=== PATIENT | female | born 1975 | race Caucasian/White ===

== ENCOUNTER 2017-09-02 16:37 | Inpatient (IN) ==
[2017-09-02] MEDS ORDERED: SODIUM CHLORIDE 0.9% 1,000 ML IV STA ×2 (18:00→21:01)
[2017-09-02] MEDS ORDERED: ONDANSETRON 4 MG/2 ML VIAL IV STA ×2 (18:00→20:57)
[2017-09-02] MEDS ORDERED: HYDROmorphone 2 MG/1 ML VIAL IV STA ×2 (18:00→20:57)
[2017-09-02] MEDS ORDERED: HYDROmorphone 2 MG/1 ML VIAL ONE ×2 (18:05→20:57)
[2017-09-02] MEDS ORDERED: ONDANSETRON 4 MG/2 ML VIAL ONE ×2 (18:05→20:57)
[2017-09-02 18:21] LABS: Basophils % 0.5 % (0.0-0.8); Eosinophils # 0.1 10*3/uL (0.0-0.87); Eosinophils % 1.9 % (0.00-10.9); Hematocrit 31.1 VOL% (35.7-47.0); Immature Granulocytes % 0.2 %; Immature Granulocytes Absolute 0.01 #; Lymphocytes # 0.3 10*3/uL (1.4-4.0); Mean Corpuscular HGB Conc 37.9 GM/DL (32-36); Mean Corpuscular Hemoglobin 35 PG (27-34); Mean Corpuscular Volume 92.8 FL (87-102); Mean Platelet Volume 9.9 FL (9.6-12.0); Monocytes # 0.8 10*3/uL (0.11-0.8); Neutrophils % 71.4 % (38.7-73.9); Platelet Count 300 T/CUMM (130-400); Red Blood Count 3.35 MC/CUMM (3.8-5.5); Red Cell Distribution Width 16.6 % (9.3-17.3); White Blood Count 4.1 T/CUMM (4-12)
[2017-09-02 18:26] LABS: Hemoglobin 11.8 GM/DL (12.0-16.0)
[2017-09-02 18:27] LABS: Apearance,Urine CLOUDY (Clear); Bacteria,Urine Many /HPF (Few); Bilirubin,Urine Negative (Negative); Blood, Urine Negative (Negative); Glucose,Urine (UA) Negative (Negative); Ketones,Urine Negative (Negative); Mucus,Urine Occasional /LPF (Occasional); Nitrite,Urine Negative (Negative); Protein,Urine Negative; RBC,Urine 1 /HPF (0-4); Squamous Epithelial Cell,Urine Many /HPF (0-10); Urine Color Yellow (Yellow); Urine Specific Gravity 1.013 (1.001-1.035); Urine Urobilinogen < 2.0 EU/DL (0.2-1.0); WBC,Urine 2 /HPF (0-6)
[2017-09-02 18:56] LABS: Albumin 4.4 G/DL (3.4-5.0); Bilirubin,Total 0.8 MG/DL (0.2-1.0); Calcium 9.1 MG/DL (8.5-10.1); Osmolality,Calculated 272.5 MOS/KG (273-304); Potassium 3.7 MMOL/L (3.5-5.1); Total Protein 8.1 G/DL (6.4-8.3)
[2017-09-02] MEDS ORDERED: SODIUM CHLORIDE 0.9% 500 ML IV STA (20:58)
[2017-09-02] MEDS ORDERED: GLUCAGON 1 MG VIAL IM PRN (22:19)
[2017-09-02] MEDS ORDERED: DEXTROSE 50% 25 GM/50 ML VIAL IV PRN (22:19)
[2017-09-02] MEDS: SODIUM CHLORIDE 0.9% 1,000 ML IV SCH (22:55)
[2017-09-02] MEDS: ENOXAPARIN 40 MG/0.4 ML SYRINGE SUBCUT SCH (23:02)
[2017-09-02 23:42] LABS: Band Neutrophils 2 % (0-10); Eosinophils 2 % (0-10); Lymphocytes 7 % (20-55); Metamyelocytes 2 %; Platelet Estimate Normal; Polychromasia Few; Segmented Neutrophils 79 % (50-85); Total Cells Counted 100
[2017-09-03] MEDS: INSULIN REGULAR 100 UNIT/ML SUBCUT SCH ×4 (00:27→18:20)
[2017-09-03] MEDS: HYDROmorphone 2 MG/1 ML VIAL IV PRN ×5 (00:33→19:45)
[2017-09-03 05:01] LABS: Eosinophils % 0.8 % (0.00-10.9); Hematocrit 24.5 VOL% (35.7-47.0); Hemoglobin 8.9 GM/DL (12.0-16.0); Immature Granulocytes % 0.4 %; Immature Granulocytes Absolute 0.01 #; Lymphocytes # 0.3 10*3/uL (1.4-4.0); Lymphocytes % 12.9 % (21.3-54.2); Mean Corpuscular HGB Conc 36.3 GM/DL (32-36); Mean Corpuscular Hemoglobin 35 PG (27-34); Mean Corpuscular Volume 95.3 FL (87-102); Mean Platelet Volume 10.5 FL (9.6-12.0); Monocytes # 0.7 10*3/uL (0.11-0.8); Monocytes % 26.1 % (1.7-12.7); Neutrophils # 1.5 10*3/uL (1.4-7.4); Neutrophils % 59.8 % (38.7-73.9); Platelet Count 204 T/CUMM (130-400); Red Blood Count 2.57 MC/CUMM (3.8-5.5); Red Cell Distribution Width 16.9 % (9.3-17.3); White Blood Count 2.5 T/CUMM (4-12)
[2017-09-03 05:31] LABS: Albumin 3.3 G/DL (3.4-5.0); Bilirubin,Total 1.1 MG/DL (0.2-1.0); Calcium 7.9 MG/DL (8.5-10.1); Potassium 3.4 MMOL/L (3.5-5.1); Total Protein 6.2 G/DL (6.4-8.3)
[2017-09-03 05:33] LABS: Band Neutrophils 18 % (0-10); Eosinophils 2 % (0-10); Lymphocytes 14 % (20-55); Metamyelocytes 3 %; Segmented Neutrophils 37 % (50-85); Total Cells Counted 100
[2017-09-03 05:34] LABS: Hypochromasia 2+; Platelet Estimate Normal
[2017-09-03] MEDS: ONDANSETRON 4 MG/2 ML VIAL IV PRN ×2 (09:49→19:46)
[2017-09-03] MEDS: SODIUM CHLORIDE 0.9% 1,000 ML IV SCH ×2 (09:52→16:32)
[2017-09-03] MEDS ORDERED: POTASSIUM CHLORIDE 20 MEQ TABLET PO ONE (13:12)
[2017-09-03] MEDS ORDERED: ESTRADIOL 0.05 MG INTRADERM SCH (13:15)
[2017-09-03] MEDS: LEVOTHYROXINE 125 MCG TABLET PO SCH (13:46)
[2017-09-03] MEDS: METOPROLOL SUCCINATE XL 25 MG TABLET PO SCH (14:06)
[2017-09-03] MEDS: DICLOFENAC 1% GEL 100 GM TUBE TOP SCH ×2 (16:33→22:00)
[2017-09-03] MEDS: LORazepam 0.5 MG TABLET PO SCH (21:59)
[2017-09-03] MEDS: GABAPENTIN 300 MG CAPSULE PO SCH (21:59)
[2017-09-03] MEDS: ENOXAPARIN 40 MG/0.4 ML SYRINGE SUBCUT SCH (21:59)
[2017-09-03] MEDS: ZALEPLON 5 MG CAPSULE PO SCH (21:59)
[2017-09-03] MEDS: SODIUM CHLOR 0.9% KCL 40 MEQ 40 MEQ/1,000 ML BAG IV SCH (22:52)
[2017-09-04] MEDS: INSULIN REGULAR 100 UNIT/ML SUBCUT SCH ×4 (00:51→18:01)
[2017-09-04 04:15] LABS: ABG HCO3 17.9 MMOL/L (20-26); ABG Oxygen Saturation 96.3 % (95-100); ABG PCO2 32.2 MM HG (35-48); ABG PH 7.332 (7.35-7.45); ABG TCO2 15.9 MMOL/L (23-27); Allen Test Positive; Pt O2 Delivery Device Room Air
[2017-09-04] MEDS: HYDROmorphone 2 MG/1 ML VIAL IV PRN ×2 (04:38→20:23)
[2017-09-04] MEDS: SODIUM CHLOR 0.9% KCL 40 MEQ 40 MEQ/1,000 ML BAG IV SCH ×2 (05:30→10:29)
[2017-09-04 05:48] LABS: Eosinophils # 0.1 10*3/uL (0.0-0.87); Hematocrit 24.9 VOL% (35.7-47.0); Hemoglobin 8.7 GM/DL (12.0-16.0); Immature Granulocytes % 0.8 %; Immature Granulocytes Absolute 0.02 #; Lymphocytes # 0.4 10*3/uL (1.4-4.0); Lymphocytes % 14.7 % (21.3-54.2); Mean Corpuscular HGB Conc 34.9 GM/DL (32-36); Mean Corpuscular Hemoglobin 35 PG (27-34); Mean Corpuscular Volume 99.2 FL (87-102); Mean Platelet Volume 10.3 FL (9.6-12.0); Monocytes # 0.6 10*3/uL (0.11-0.8); Monocytes % 22.4 % (1.7-12.7); Neutrophils # 1.5 10*3/uL (1.4-7.4); Neutrophils % 60.1 % (38.7-73.9); Platelet Count 162 T/CUMM (130-400); Red Blood Count 2.51 MC/CUMM (3.8-5.5); Red Cell Distribution Width 17.5 % (9.3-17.3); White Blood Count 2.5 T/CUMM (4-12)
[2017-09-04 06:25] LABS: Band Neutrophils 2 % (0-10); Eosinophils 1 % (0-10); Lymphocytes 16 % (20-55); Segmented Neutrophils 60 % (50-85); Total Cells Counted 100
[2017-09-04 06:26] LABS: Giant Platelets Few; Hypochromasia 1+; Microcytosis Slight; Platelet Estimate Normal
[2017-09-04] MEDS ORDERED: FUROSEMIDE 20 MG/2 ML VIAL IV PRN (06:33)
[2017-09-04] MEDS ORDERED: SODIUM CHLORIDE 0.9% 1,000 ML IV PRN (06:33)
[2017-09-04 06:37] LABS: Calcium 7.9 MG/DL (8.5-10.1); Free T4 (Free Thyroxine) 1.18 NG/DL (0.76-1.46); Magnesium 1.7 MG/DL (1.8-2.4); Osmolality,Calculated 280.3 MOS/KG (273-304); Potassium 4.4 MMOL/L (3.5-5.1); Thyroid Stimulating Hormone 9.75 uIU/ml (0.358-3.74)
[2017-09-04] MEDS: LEVOTHYROXINE 125 MCG TABLET PO SCH (06:45)
[2017-09-04] MEDS: SERTRALINE 100 MG TABLET PO SCH (08:54)
[2017-09-04] MEDS: METOPROLOL SUCCINATE XL 25 MG TABLET PO SCH (08:54)
[2017-09-04] MEDS: LORazepam 0.5 MG TABLET PO SCH ×2 (08:54→20:23)
[2017-09-04] MEDS: DICLOFENAC 1% GEL 100 GM TUBE TOP SCH ×4 (08:57→20:22)
[2017-09-04] MEDS ORDERED: FUROSEMIDE 40 MG/4 ML VIAL IV ONE (10:23)
[2017-09-04] MEDS ORDERED: MAGNESIUM SULF RIDER 2 GM in PREMIX 1 EACH IV ONE (10:24)
[2017-09-04] MEDS ORDERED: BISACODYL 5 MG TABLET PO ONE (14:31)
[2017-09-04 19:50] LABS: Hematocrit 29.9 VOL% (35.7-47.0)
[2017-09-04 19:55] LABS: Hemoglobin 10.6 GM/DL (12.0-16.0)
[2017-09-04] MEDS: GABAPENTIN 300 MG CAPSULE PO SCH (20:23)
[2017-09-04] MEDS: ZALEPLON 5 MG CAPSULE PO SCH (20:23)
[2017-09-05] MEDS: INSULIN REGULAR 100 UNIT/ML SUBCUT SCH ×3 (00:44→11:15)
[2017-09-05] MEDS: LEVOTHYROXINE 125 MCG TABLET PO SCH (06:08)
[2017-09-05] MEDS ORDERED: BISACODYL 5 MG TABLET PO ONE (06:15)
[2017-09-05 06:22] LABS: Basophils % 0.4 % (0.0-0.8); Eosinophils # 0.1 10*3/uL (0.0-0.87); Eosinophils % 1.9 % (0.00-10.9); Hematocrit 29.2 VOL% (35.7-47.0); Hemoglobin 10.3 GM/DL (12.0-16.0); Immature Granulocytes % 0.8 %; Immature Granulocytes Absolute 0.02 #; Lymphocytes # 0.6 10*3/uL (1.4-4.0); Lymphocytes % 23.5 % (21.3-54.2); Mean Corpuscular HGB Conc 35.3 GM/DL (32-36); Mean Corpuscular Hemoglobin 34 PG (27-34); Mean Corpuscular Volume 96.4 FL (87-102); Mean Platelet Volume 10.1 FL (9.6-12.0); Monocytes # 0.7 10*3/uL (0.11-0.8); Monocytes % 25.4 % (1.7-12.7); Neutrophils # 1.3 10*3/uL (1.4-7.4); Platelet Count 188 T/CUMM (130-400); Red Blood Count 3.03 MC/CUMM (3.8-5.5); Red Cell Distribution Width 16.6 % (9.3-17.3); White Blood Count 2.6 T/CUMM (4-12)
[2017-09-05 06:59] LABS: Band Neutrophils 1 % (0-10); Eosinophils 4 % (0-10); Hypochromasia 1+; Lymphocytes 22 % (20-55); Macrocytosis 1+; Nucleated Red Blood Cells 1 (0-5); Platelet Estimate Adequate; Polychromasia Slight; Segmented Neutrophils 51 % (50-85); Total Cells Counted 100
[2017-09-05] MEDS: METOPROLOL SUCCINATE XL 25 MG TABLET PO SCH (08:54)
[2017-09-05] MEDS: LORazepam 0.5 MG TABLET PO SCH (08:54)
[2017-09-05] MEDS: SERTRALINE 100 MG TABLET PO SCH (08:54)
[2017-09-05] MEDS: DICLOFENAC 1% GEL 100 GM TUBE TOP SCH (08:54)
[2017-09-05 12:02] VITALS: BP 136/84
== END 2017-09-05 12:30 | disposition home or self-care (01) | DRG 439 ==
LOC: N.ED 16:37 → SUATTDRO 21:44 → N.EDINP 21:44 → N.3E 22:14
PROVIDERS: ADMIT Internal Medicine; ATTEND Internal Medicine

== ENCOUNTER 2020-06-13 16:49 | Observation (INO) ==
[2020-06-13] MEDS ORDERED: ALBUTEROL/IPRATROPIUM 3 ML NEB RESP TX STA (20:04)
[2020-06-13] MEDS ORDERED: ONDANSETRON 4 MG/2 ML VIAL IV STA (20:04)
[2020-06-13] MEDS ORDERED: cefTRIAXone 1,000 MG in SODIUM CHLORIDE 0.9% 100 ML IV STA (20:04)
[2020-06-13] MEDS ORDERED: methylPREDNISolone SOD SUC 125 MG/2 ML VIAL IV STA (20:04)
[2020-06-13] MEDS ORDERED: FUROSEMIDE 40 MG/4 ML VIAL IV STA (20:55)
[2020-06-13 21:00] LABS: Basophils % 0.4 % (0.0-0.8); Eosinophils # 0.4 10*3/uL (0.0-0.87); Eosinophils % 4.5 % (0.00-10.9); Hematocrit 41.1 VOL% (35.7-47.0); Hemoglobin 14.4 GM/DL (12.0-16.0); Immature Granulocytes % 0.9 %; Immature Granulocytes Absolute 0.07 #; Lymphocytes # 1.5 10*3/uL (1.4-4.0); Lymphocytes % 18.7 % (21.3-54.2); Mean Corpuscular Volume 94.5 FL (87-102); Mean Platelet Volume 9.8 FL (9.6-12.0); Monocytes % 8.9 % (1.7-12.7); Neutrophils % 66.6 % (38.7-73.9); Platelet Count 208 T/CUMM (130-400); Red Blood Count 4.35 MC/CUMM (3.8-5.5); Red Cell Distribution Width 13.8 % (9.3-17.3); White Blood Count 7.8 T/CUMM (4-12)
[2020-06-13 21:15] LABS: PT Patient Result 10.5 SECS (9.8-11.9)
[2020-06-13 21:22] LABS: Albumin 3.7 G/DL (3.4-5.0); Calcium 9.3 MG/DL (8.5-10.1); Ferritin 63.1 ng/ml (8-252); Osmolality,Calculated 277.7 MOS/KG (273-304); Total Protein 7.2 G/DL (6.4-8.3)
[2020-06-13] MEDS ORDERED: ONDANSETRON 4 MG/2 ML VIAL IV PRN (23:28)
[2020-06-13] MEDS ORDERED: GLUCAGON 1 MG VIAL IM PRN (23:28)
[2020-06-13] MEDS ORDERED: DEXTROSE 50% 25 GM/50 ML VIAL IV PRN (23:28)
[2020-06-13] MEDS ORDERED: ACETAMINOPHEN 325 MG TABLET PO PRN (23:28)
[2020-06-14] MEDS: ALBUTEROL/IPRATROPIUM 3 ML NEB RESP TX SCH ×4 (01:07→19:19)
[2020-06-14 01:33] LABS: Risk Ratio 4.28; VLDL CHOLESTEROL 43.6 MG/DL
[2020-06-14 04:09] LABS: Apearance,Urine CLEAR (Clear); Bacteria,Urine Occasional /HPF (Few); Bilirubin,Urine Negative (Negative); Blood, Urine Negative (Negative); Glucose,Urine (UA) Negative (Negative); Hyaline Casts,Urine 9 /LPF (0-3); Ketones,Urine Negative (Negative); Mucus,Urine Occasional /LPF (Occasional); Nitrite,Urine Negative (Negative); Protein,Urine Negative; RBC,Urine <1 /HPF (0-4); Squamous Epithelial Cell,Urine Occasional /HPF (0-10); Urine Color Straw (Yellow); Urine Specific Gravity 1.006 (1.001-1.035); Urine Urobilinogen < 2.0 EU/DL (0.2-1.0); WBC,Urine 1 /HPF (0-6)
[2020-06-14 06:12] LABS: Albumin 3.6 G/DL (3.4-5.0); Bilirubin,Total 0.7 MG/DL (0.2-1.0); Calcium 9.3 MG/DL (8.5-10.1); Osmolality,Calculated 279.2 MOS/KG (273-304); Total Protein 7.8 G/DL (6.4-8.3)
[2020-06-14] MEDS ORDERED: SODIUM CHLORIDE 0.9% 1,000 ML IV SCH (08:30)
[2020-06-14] MEDS: FUROSEMIDE 40 MG/4 ML VIAL IV SCH (09:55)
[2020-06-14] MEDS: methylPREDNISolone SOD SUC 40 MG/1 ML VIAL IV SCH ×2 (13:18→21:00)
[2020-06-14] MEDS: LORazepam 0.5 MG TABLET PO SCH ×2 (13:18→21:02)
[2020-06-14] MEDS: MULTIVITAMIN (CENTRUM) TABLET PO SCH (13:18)
[2020-06-14] MEDS: METOPROLOL SUCCINATE XL 25 MG TABLET PO SCH (13:18)
[2020-06-14] MEDS: SERTRALINE 100 MG TABLET PO SCH (13:18)
[2020-06-14] MEDS: INSULIN GLARGINE 100 UNIT/ML SUBCUT SCH (13:30)
[2020-06-14] MEDS ORDERED: DEXTROSE 50% 25 GM/50 ML VIAL IV PRN (15:06)
[2020-06-14] MEDS: GABAPENTIN 300 MG CAPSULE PO SCH (21:02)
[2020-06-15] MEDS: ALBUTEROL/IPRATROPIUM 3 ML NEB RESP TX SCH ×4 (01:18→20:34)
[2020-06-15] MEDS: methylPREDNISolone SOD SUC 40 MG/1 ML VIAL IV SCH ×3 (04:05→20:17)
[2020-06-15 05:57] LABS: Basophils % 0.1 % (0.0-0.8); Hematocrit 36.4 VOL% (35.7-47.0); Hemoglobin 12.6 GM/DL (12.0-16.0); Immature Granulocytes % 1.8 %; Immature Granulocytes Absolute 0.13 #; Lymphocytes # 0.5 10*3/uL (1.4-4.0); Lymphocytes % 7.3 % (21.3-54.2); Mean Corpuscular HGB Conc 34.6 GM/DL (32-36); Mean Corpuscular Volume 94.5 FL (87-102); Monocytes % 1.8 % (1.7-12.7); Platelet Count 189 T/CUMM (130-400); Red Blood Count 3.85 MC/CUMM (3.8-5.5); Red Cell Distribution Width 13.7 % (9.3-17.3); White Blood Count 7.2 T/CUMM (4-12)
[2020-06-15 06:14] LABS: Calcium 8.7 MG/DL (8.5-10.1); Osmolality,Calculated 280.1 MOS/KG (273-304)
[2020-06-15] MEDS: LEVOTHYROXINE 200 MCG TABLET PO SCH (06:32)
[2020-06-15] MEDS ORDERED: LEVOTHYROXINE 100 MCG VIAL IV ONE (07:52)
[2020-06-15] MEDS: LORazepam 0.5 MG TABLET PO SCH ×2 (09:37→20:17)
[2020-06-15] MEDS: METOPROLOL SUCCINATE XL 25 MG TABLET PO SCH (09:37)
[2020-06-15] MEDS: MULTIVITAMIN (CENTRUM) TABLET PO SCH (09:38)
[2020-06-15] MEDS: INSULIN GLARGINE 100 UNIT/ML SUBCUT SCH (09:38)
[2020-06-15] MEDS: SERTRALINE 100 MG TABLET PO SCH (09:38)
[2020-06-15] MEDS: FUROSEMIDE 40 MG/4 ML VIAL IV SCH (09:38)
[2020-06-15] MEDS: GABAPENTIN 300 MG CAPSULE PO SCH (20:17)
[2020-06-15] MEDS ORDERED: ZALEPLON 5 MG CAPSULE PO SCH (21:00)
[2020-06-15] MEDS: INSULIN REGULAR 100 UNIT/ML SUBCUT SCH (21:07)
[2020-06-16] MEDS: ALBUTEROL/IPRATROPIUM 3 ML NEB RESP TX SCH ×2 (03:20→07:20)
[2020-06-16] MEDS: methylPREDNISolone SOD SUC 40 MG/1 ML VIAL IV SCH (05:06)
[2020-06-16] MEDS: LEVOTHYROXINE 200 MCG TABLET PO SCH (06:07)
[2020-06-16 06:25] LABS: Basophils % 0.2 % (0.0-0.8); Hematocrit 37.2 VOL% (35.7-47.0); Hemoglobin 13.1 GM/DL (12.0-16.0); Immature Granulocytes % 2.2 %; Immature Granulocytes Absolute 0.19 #; Lymphocytes # 0.6 10*3/uL (1.4-4.0); Lymphocytes % 7.1 % (21.3-54.2); Mean Corpuscular HGB Conc 35.2 GM/DL (32-36); Mean Corpuscular Volume 94.7 FL (87-102); Mean Platelet Volume 10.1 FL (9.6-12.0); Monocytes % 3.8 % (1.7-12.7); Neutrophils % 86.7 % (38.7-73.9); Platelet Count 198 T/CUMM (130-400); Red Blood Count 3.93 MC/CUMM (3.8-5.5); Red Cell Distribution Width 13.5 % (9.3-17.3); White Blood Count 8.6 T/CUMM (4-12)
[2020-06-16 06:41] LABS: Osmolality,Calculated 286.8 MOS/KG (273-304)
[2020-06-16] MEDS ORDERED: FUROSEMIDE 20 MG TABLET PO PRN (09:00)
[2020-06-16] MEDS: INSULIN GLARGINE 100 UNIT/ML SUBCUT SCH (09:45)
[2020-06-16] MEDS: INSULIN REGULAR 100 UNIT/ML SUBCUT SCH ×2 (09:47→11:50)
[2020-06-16] MEDS: MULTIVITAMIN (CENTRUM) TABLET PO SCH (09:49)
[2020-06-16] MEDS: SERTRALINE 100 MG TABLET PO SCH (09:49)
[2020-06-16] MEDS: LORazepam 0.5 MG TABLET PO SCH (09:49)
[2020-06-16] MEDS: METOPROLOL SUCCINATE XL 25 MG TABLET PO SCH (09:50)
[2020-06-16 11:26] VITALS: BP 130/68
== END 2020-06-16 11:49 | disposition home or self-care (01) ==
LOC: N.ED 16:49 → N.EDINP 16:49 → SUATTDRO 23:28 → N.TELES 06-14 00:59
PROVIDERS: ADMIT Internal Medicine; ATTEND Internal Medicine

== ENCOUNTER 2020-11-08 12:49 | Observation (INO) ==
[2020-11-08 13:30] LABS: Basophils % 0.2 % (0.0-0.8); Eosinophils % 0.9 % (0.00-10.9); Hematocrit 34.5 VOL% (35.7-47.0); Hemoglobin 12.2 GM/DL (12.0-16.0); Immature Granulocytes % 0.7 %; Immature Granulocytes Absolute 0.03 #; Lymphocytes # 1.1 10*3/uL (1.4-4.0); Lymphocytes % 24.2 % (21.3-54.2); Mean Corpuscular HGB Conc 35.4 GM/DL (32-36); Mean Corpuscular Volume 91.5 FL (87-102); Mean Platelet Volume 9.9 FL (9.6-12.0); Monocytes % 15.6 % (1.7-12.7); Neutrophils % 58.4 % (38.7-73.9); Platelet Count 196 T/CUMM (130-400); Red Blood Count 3.77 MC/CUMM (3.8-5.5); Red Cell Distribution Width 14.8 % (9.3-17.3); White Blood Count 4.4 T/CUMM (4-12)
[2020-11-08] MEDS ORDERED: FUROSEMIDE 100 MG/10 ML VIAL IV STA (13:47)
[2020-11-08 14:06] LABS: Albumin 2.9 G/DL (3.4-5.0); Bilirubin,Total 0.9 MG/DL (0.2-1.0); Calcium 8.4 MG/DL (8.5-10.1); Osmolality,Calculated 276.1 MOS/KG (273-304)
[2020-11-08 14:07] LABS: Anisocytosis Slight; Hypochromasia 1+; Lymphocytes 22 % (20-55); Platelet Estimate Adequate; Polychromasia Few; Segmented Neutrophils 62 % (50-85); Total Cells Counted 100
[2020-11-08] MEDS ORDERED: POTASSIUM CHLORIDE 20 MEQ TABLET PO STA (14:31)
[2020-11-08] MEDS ORDERED: GLUCAGON 1 MG VIAL IM PRN (14:49)
[2020-11-08] MEDS ORDERED: ONDANSETRON 4 MG/2 ML VIAL IV PRN (14:49)
[2020-11-08] MEDS ORDERED: DEXTROSE 50% 25 GM/50 ML VIAL IV PRN (14:49)
[2020-11-08] MEDS ORDERED: POTASSIUM CHLORIDE 20 MEQ TABLET PO PRN (14:51)
[2020-11-08] MEDS ORDERED: ALBUTEROL/IPRATROPIUM 3 ML NEB RESP TX PRN (16:17)
[2020-11-08] MEDS: INSULIN LISPRO 100 UNIT/ML SUBCUT SCH ×2 (16:39→21:19)
[2020-11-08] MEDS: FUROSEMIDE 20 MG/2 ML VIAL IV SCH (16:39)
[2020-11-08] MEDS: carvediloL 3.125 MG TABLET PO SCH (17:14)
[2020-11-08] MEDS: ALBUTEROL/IPRATROPIUM 3 ML NEB RESP TX SCH ×2 (18:35→20:56)
[2020-11-09] MEDS: ALBUTEROL/IPRATROPIUM 3 ML NEB RESP TX SCH ×7 (00:25→23:15)
[2020-11-09 05:44] LABS: Basophils % 0.2 % (0.0-0.8); Eosinophils # 0.1 10*3/uL (0.0-0.87); Eosinophils % 2.1 % (0.00-10.9); Hematocrit 33.8 VOL% (35.7-47.0); Hemoglobin 11.9 GM/DL (12.0-16.0); Immature Granulocytes % 0.4 %; Immature Granulocytes Absolute 0.02 #; Lymphocytes # 1.3 10*3/uL (1.4-4.0); Lymphocytes % 27.4 % (21.3-54.2); Mean Corpuscular HGB Conc 35.2 GM/DL (32-36); Mean Corpuscular Volume 93.1 FL (87-102); Mean Platelet Volume 10.2 FL (9.6-12.0); Monocytes % 15.7 % (1.7-12.7); Neutrophils % 54.2 % (38.7-73.9); Platelet Count 208 T/CUMM (130-400); Red Blood Count 3.63 MC/CUMM (3.8-5.5); Red Cell Distribution Width 14.7 % (9.3-17.3); White Blood Count 4.8 T/CUMM (4-12)
[2020-11-09 06:15] LABS: Eosinophils 1 % (0-10); Hypochromasia 1+; Lymphocytes 26 % (20-55); Microcytosis 1+; Nucleated Red Blood Cells 1 (0-5); Platelet Estimate Adequate; Segmented Neutrophils 61 % (50-85); Total Cells Counted 100
[2020-11-09 06:27] LABS: Calcium 8.5 MG/DL (8.5-10.1); Osmolality,Calculated 266.8 MOS/KG (273-304); Risk Ratio 3.78; Thyroid Stimulating Hormone 0.137 uIU/ml (0.358-3.74); VLDL CHOLESTEROL 28.6 MG/DL
[2020-11-09] MEDS ORDERED: MAGNESIUM SULF RIDER 2 GM in PREMIX 1 EACH IV ONE (07:18)
[2020-11-09] MEDS ORDERED: MAGNESIUM SULF RIDER 2 GM in PREMIX 1 EACH IV PRN (07:53)
[2020-11-09] MEDS ORDERED: MAGNESIUM SULF RIDER 4 GM in PREMIX 1 EACH IV PRN (07:53)
[2020-11-09 08:21] LABS: Free T4 (Free Thyroxine) 0.86 NG/DL (0.76-1.46)
[2020-11-09] MEDS ORDERED: POTASSIUM CHLORIDE 20 MEQ TABLET PO ONE (08:26)
[2020-11-09] MEDS: MULTIVITAMIN (CENTRUM) TABLET PO SCH (09:07)
[2020-11-09] MEDS: carvediloL 3.125 MG TABLET PO SCH ×2 (09:07→09:17)
[2020-11-09] MEDS: INSULIN LISPRO 100 UNIT/ML SUBCUT SCH ×4 (09:07→20:46)
[2020-11-09] MEDS: FUROSEMIDE 20 MG/2 ML VIAL IV SCH ×2 (09:07→16:06)
[2020-11-09] MEDS: PANTOPRAZOLE 40 MG TABLET PO SCH (09:07)
[2020-11-09] MEDS: VENLAFAXINE 37.5 MG TABLET PO SCH (09:39)
[2020-11-09] MEDS: LORazepam 1 MG TABLET PO SCH ×2 (10:30→20:46)
[2020-11-09] MEDS: ACETAMINOPHEN 325 MG TABLET PO PRN ×2 (13:22→18:06)
[2020-11-09] MEDS ORDERED: DEXTROSE 50% 25 GM/50 ML VIAL IV PRN (14:15)
[2020-11-09] MEDS ORDERED: GABAPENTIN 300 MG CAPSULE PO SCH (21:00)
[2020-11-10] MEDS: ALBUTEROL/IPRATROPIUM 3 ML NEB RESP TX SCH ×3 (04:25→11:20)
[2020-11-10 06:37] LABS: Basophils % 0.4 % (0.0-0.8); Eosinophils # 0.2 10*3/uL (0.0-0.87); Eosinophils % 4.4 % (0.00-10.9); Hematocrit 34.3 VOL% (35.7-47.0); Hemoglobin 11.9 GM/DL (12.0-16.0); Immature Granulocytes % 0.4 %; Immature Granulocytes Absolute 0.02 #; Lymphocytes # 1.4 10*3/uL (1.4-4.0); Lymphocytes % 29.8 % (21.3-54.2); Mean Corpuscular HGB Conc 34.7 GM/DL (32-36); Mean Corpuscular Volume 93.7 FL (87-102); Mean Platelet Volume 10.1 FL (9.6-12.0); Monocytes % 14.9 % (1.7-12.7); Neutrophils % 50.1 % (38.7-73.9); Platelet Count 277 T/CUMM (130-400); Red Blood Count 3.66 MC/CUMM (3.8-5.5); Red Cell Distribution Width 15.2 % (9.3-17.3); White Blood Count 4.6 T/CUMM (4-12)
[2020-11-10 06:59] LABS: Calcium 8.5 MG/DL (8.5-10.1)
[2020-11-10 07:38] LABS: Calcium 8.1 MG/DL (8.5-10.1); Osmolality,Calculated 274.5 MOS/KG (273-304)
[2020-11-10] MEDS ORDERED: POTASSIUM CHLORIDE 20 MEQ TABLET PO ONE (07:53)
[2020-11-10] MEDS: INSULIN LISPRO 100 UNIT/ML SUBCUT SCH ×2 (08:21→12:45)
[2020-11-10] MEDS: MULTIVITAMIN (CENTRUM) TABLET PO SCH (08:21)
[2020-11-10] MEDS: VENLAFAXINE 37.5 MG TABLET PO SCH (08:21)
[2020-11-10] MEDS: PANTOPRAZOLE 40 MG TABLET PO SCH (08:21)
[2020-11-10] MEDS: LORazepam 1 MG TABLET PO SCH (08:21)
[2020-11-10] MEDS: FUROSEMIDE 20 MG/2 ML VIAL IV SCH (08:22)
[2020-11-10] MEDS ORDERED: FUROSEMIDE 20 MG TABLET PO SCH (09:00)
[2020-11-10] MEDS ORDERED: METOPROLOL SUCCINATE XL 100 MG TABLET PO SCH (09:00)
[2020-11-10 12:32] VITALS: BP 130/75
== END 2020-11-10 14:45 | disposition home health service (06) ==
LOC: EDBD → EDUNIT# → N.TELES 12:49 → N.ED 12:49 → N.TELES 16:20
PROVIDERS: ADMIT Internal Medicine; ATTEND Internal Medicine